=== PATIENT | female | born 1985 | race Caucasian/White ===

== ENCOUNTER 2018-04-15 00:08 | Emergency (ER) | payer OTHER ==
[~2018-04-15] VITALS: Ht 165.1 cm; Wt 96.7 kg
[~2018-04-15 00:08] MED LIST: BACLOFEN10 MG PO; GABAPENTIN600 MG PO; LEXAPRO 5MG5 MG PO; LORTAB 5/500 501 TAB PO; LOVENOX 4040 MG/0.4 SQ; NEURONTIN300 MG/CAP PO; NO HOME MEDICATIONS; PRENATAL1 TA1 PO
[2018-04-15 00:11] VITALS: BP 142/88; TEMP 98
[2018-04-15 00:53] LABS: COLLECTION METHOD CLEAN CATCH
[2018-04-15 01:09] LABS: PH 7 (5-8); URINE APPEARANCE Clear; URINE BACTERIA Rare /hpf; URINE BILIRUBIN Negative (NEGATIVE); URINE BLOOD 3+ (NEGATIVE); URINE COLOR Amber; URINE GLUCOSE 1+ (NEGATIVE); URINE KETONE Negative (NEGATIVE); URINE LEUKOCYTE ESTERASE 2+ (NEGATIVE); URINE NITRATE Negative (NEGATIVE); URINE PROTEIN(semi-quant) 2+ (NEGATIVE); URINE UROBILINOGEN Negative (NEGATIVE)
[2018-04-15] MEDS ORDERED: CEFTIN500 MG PO (01:22)
[2018-04-15] MEDS ORDERED: PYRIDIUM200 M1 PO (01:22)
[2018-04-15 01:34] VITALS: PULSE 89
== END 2018-04-15 01:33 | disposition home or self-care (01) ==
LOC: COL.ER 00:08
PROVIDERS: Emergency Medicine
DX: N30.90 Cystitis, unspecified without hematuria (principal); Z90.49 Acquired absence of other specified parts of digestive tract